=== PATIENT | female | born 2000 | race Caucasian/White ===

== ENCOUNTER 2019-04-16 00:39 | Emergency (ER) | payer BC, SELFPAY ==
[2019-04-16 01:01] VITALS: BP 118/72; PULSE 110; RESP 22; TEMP 37.6; O2SAT 100
[2019-04-16 02:28] VITALS: BP 113/70; PULSE 89; RESP 18; O2SAT 98
--- NOTE | 2019-04-16 03:25 | ED.GENADULT ---
HPI - General Adult General Chief complaint: Unspecified Stated complaint: 25 WEEKS PREG, FEVER, HEADACHES Time Seen by Provider: 04/16/19 02:27 Source: patient Mode of arrival: ambulatory Limitations: no limitations History of Present Illness HPI narrative: Pt presented for evaluation of abdominal pain, nausea and vomiting. Pt with lower abdominal pain which is aching in nature. She denies RLQ pain. She has been nauseated and vomited several times. She reports low grade fever and chills over the past two days. Denies vaginal discharge or loss of fluids. SHe is feeling movements normally per her. She also reports a nosebleed today. She has also reported heriberto crook contractions in the past but none currently. Her OBGYN is . Related Data Allergies Allergy/AdvReac Type Severity Reaction Status Date / Time No Known Allergies Allergy Unverified 08/26/16 06:28 Review of Systems Review of Systems: Narrative: CONSTITUTIONAL: Fever and chills CARDIOVASCULAR: Denies chest pain, palpitations, or edema. RESPIRATORY: Denies cough or dyspnea. GASTROINTESTINAL: Reports abdominal pain, nausea and vomiting GENITOURINARY: Reports frequency in urination SKIN: Denies rash or itching. MUSCULOSKELETAL: Denies back pain, joint pain, or myalgia. NEUROLOGIC: Denies headache, numbness, or weakness. [facility] Family History Family History (Updated 10/03/09 @ 12:58 by DOCTOR UNKNOWN) Other Diabetes mellitus Hypertension Social History Social History Smoking status: Never smoker Second hand tobacco smoke exposure: No Alcohol intake: never Gender identity (if verbalized by the patient): Female Exam Narrative: Exam Narrative: GENERAL: Well-appearing, well-nourished, and in no acute distress. HEAD: Normocephalic, atraumatic. EYES: PERRLA and EOMI. ENT: Nares clear, no rhinorrhea or epistaxis. Mucous membranes moist. NECK: Supple. CHEST: Clear to auscultation. No respiratory distress. HEART: Regular rate and rhythm. No murmur heard. Normal peripheral pulses. ABDOMEN: Fundus palpable above the umbilicus. Soft, nontender, nondistended, normal active bowel sounds. EXTREMITIES: Normal range of motion. No edema. SKIN: Warm, dry, no rash. NEURO: No focal deficits. Alert and oriented x3 Course Vital Signs Vital signs: Vital Signs Temperature 37.6 C 04/16/19 01:01 Pulse Rate 110 H 04/16/19 01:01 Respiratory Rate 22 H 04/16/19 01:01 Blood Pressure 118/72 04/16/19 01:01 Pulse Oximetry 100 04/16/19 01:01 Temperature 37.6 C 04/16/19 01:01 Pulse Rate 87 04/16/19 05:52 Respiratory Rate 18 04/16/19 05:52 Blood Pressure 109/74 04/16/19 05:52 Pulse Oximetry 98 04/16/19 05:52 Medical Decision Making MDM Narrative Medical decision making narrative: Pt with leukocytosis, anemia and evidence of UTI. Leukocytosis can be seen in and is often normal. She is afebrile here. She does not have influenza on swab. Pt given IV fluids and felt much improved. FHTs 160s. No contraction pain or vaginal bleeding per patient. Patient will be treated for UTI. No RLQ or RUQ abd pain on reassessment, cholecystitis or appendicits unlikely. Advised to follow up with OBGYN for reassessment or return if changes/worsening. Vital Signs Vital Signs: Vital Signs Temperature 37.6 C 04/16/19 01:01 Pulse Rate 110 H 04/16/19 01:01 Respiratory Rate 22 H 04/16/19 01:01 Blood Pressure 118/72 04/16/19 01:01 Pulse Oximetry 100 04/16/19 01:01 Temperature 37.6 C 04/16/19 01:01 Pulse Rate 87 04/16/19 05:52 Respiratory Rate 18 04/16/19 05:52 Blood Pressure 109/74 04/16/19 05:52 Pulse Oximetry 98 04/16/19 05:52 Lab Data Result diagrams: 04/16/19 03:23 04/16/19 03:23 Labs: Lab Results 04/16/19 04/16/19 04/16/19 Range/Units 03:23 03:23 03:23 WBC 14.9 H (4.5-10.0) K/mm3 RBC 3.12 L (4.2-5.4) M/mm3 Hgb 9.9 L (12.0-15.0) g/dL H
[2019-04-16] MEDS: SODIUM CHLORIDE 0.9% IV 1,000 ML 999 ML IV CONT (03:26)
[2019-04-16 03:30] LABS: Glucose Point of Care 102 (65-105)
[2019-04-16 03:41] LABS: Basophils Percent Auto 0.2 % (0.2-1.2); Eosinophils Percent Auto 0.1 % (0-4.4); Hematocrit 29.5 % (37.0-47.0); Hemoglobin 9.9 g/dL (12.0-15.0); Immature Granulocyte Percent A 0.7 % (0-0.5); Lymphocytes Absolute Auto 2.45 K/mm3 (0.9-3.2); Lymphocytes Percent Auto 16.4 % (18.3-44.2); Mean Corpuscular HGB Conc 33.6 g/dl (32-36); Mean Corpuscular Hemoglobin 31.7 pg (26-34); Mean Corpuscular Volume 94.6 fl (80-100); Mean Platelet Volume 10.3 fl (7.4-10.4); Monocytes Absolute Auto 1.8 K/mm3 (0.1-0.6); Monocytes Percent Auto 12.1 % (2.6-8.5); Neutrophils Absolute Auto 10.5 K/mm3 (1.3-6.7); Neutrophils Percent Auto 70.5 % (45.5-73.1); Platelet Count Result 224 k/mm3 (150-375); Red Blood Count 3.12 M/mm3 (4.2-5.4); Red Cell Distribution Width 12.5 % (11.5-14.5); White Blood Count 14.9 K/mm3 (4.5-10.0)
[2019-04-16 04:00] LABS: Add Urine Microscopic? YES; Appearance Urine Cloudy (Clear); Bacteria Urine Trace /hpf; Bilirubin Urine Negative (Negative); Blood Urine Negative (Negative); Color Urine Straw (Yellow); Glucose Urine UA Negative (Negative); Ketones Urine Negative (Negative); Leukocyte Esterase Ur 2+ LEU/UL (Negative); Nitrate Urine Negative (Negative); Protein Urine Negative (Negative); Squamous Epithelial Cell Urine Many /hpf (Few); Urobilinogen Urine Negative mg/dL (<2.0); WBC Urine 16-20 /hpf
[2019-04-16 04:03] LABS: Alanine Aminotransferase 14 U/L (4-35); Albumin Level 3.7 g/dL (3.5-5.1); Alkaline Phosphatase 108 U/L (38-126); Aspartate Amino Transferase 18 U/L (14-36); Bilirubin,Total 0.4 mg/dL (0.2-1.3); Blood Urea Nitrogen 4 mg/dL (7-17); Calcium 8.8 mg/dL (8.4-10.2); Carbon Dioxide 22 mmol/L (22-30); Chloride 97 mmol/L (98-107); Estimated CRCL calculation 146 ml/min; Estimated Glomerular Filt Rate > 60; Glucose 97 mg/dL (65-105); Lipase 29 U/L (23-300); Potassium 3.6 mmol/L (3.4-5.0); Sodium 132 mmol/L (137-145)
[2019-04-16 04:05] LABS: Specific Grav Ur 1.003 (1.001-1.035)
[2019-04-16 05:52] VITALS: BP 109/74; PULSE 87; RESP 18; O2SAT 98
[2019-04-16] MEDS: CEPHALEXIN 500 MG CAPSULE PO (05:52)
== END 2019-04-16 05:53 | disposition home or self-care (01) ==
PROVIDERS: Emergency Provider Emergency Medicine; PCP Family Medicine
DX: N30.00 Acute cystitis without hematuria (principal)
CPT/HCPCS: 36415; 80053; 81001; 82948; 83690; 84443; 85025; 87086; 87804; 96360; 99283; A9270; J7030

== ENCOUNTER 2019-07-17 00:37 | Inpatient (IN) | payer BC, MEDICAID, SELFPAY ==
[2019-07-17] VITALS (70 sets, daily range): BP systolic 75–135; BP diastolic 23–101; PULSE 59–104; RESP 16; TEMP 36.6–37.2; O2SAT 98–100; BMI 28.4
[2019-07-17 01:29] LABS: Basophils Percent Auto 0.2 % (0.2-1.2); Eosinophils Absolute Auto 0.1 K/mm3 (0-0.3); Eosinophils Percent Auto 0.6 % (0-4.4); Hematocrit 37.1 % (37.0-47.0); Hemoglobin 12.7 g/dL (12.0-15.0); Immature Granulocyte Absolute 0.07 K/mm3 (0.00-0.031); Immature Granulocyte Percent A 0.6 % (0-0.5); Lymphocytes Absolute Auto 3.84 K/mm3 (0.9-3.2); Lymphocytes Percent Auto 33.6 % (18.3-44.2); Mean Corpuscular HGB Conc 34.2 g/dl (32-36); Mean Corpuscular Hemoglobin 32.2 pg (26-34); Mean Corpuscular Volume 93.9 fl (80-100); Mean Platelet Volume 11.3 fl (7.4-10.4); Monocytes Absolute Auto 0.8 K/mm3 (0.1-0.6); Monocytes Percent Auto 6.8 % (2.6-8.5); Neutrophils Absolute Auto 6.7 K/mm3 (1.3-6.7); Neutrophils Percent Auto 58.2 % (45.5-73.1); Platelet Count Result 259 k/mm3 (150-375); Red Blood Count 3.95 M/mm3 (4.2-5.4); Red Cell Distribution Width 12.9 % (11.5-14.5); White Blood Count 11.4 K/mm3 (4.5-10.0)
[2019-07-17] MEDS: LACTATED RINGERS 1,000 ML 125 ML IV CONT ×3 (03:04→09:25)
[2019-07-17] MEDS: OXYTOCIN 30 UNITS/NS 500 ML 30 UNITS/500 ML BAG IV CONT (03:04)
--- NOTE | 2019-07-17 10:23 | WPDOBADMIT ---
Obstetrics - Admit Note Admission Note: 0745 Called to bedside IUPC placed and amnio infusion. Patient with Oxygen and on left side. record reviewed. No pertinent additions to the history and/or any subsequent changes in the physical findings that are not consistent with the expected course of the were found. Additions to the history and/or subsequent changes in the physical findings follow. None.
--- NOTE | 2019-07-17 10:24 | PM.OBPRVD ---
OB - Delivery Note Procedure Delivery date: 07/17/19 Procedure: events: Labor Augmentation Intrapartal events: None Delivery augmentation: pitocin Delivery monitor: external FHT, external uterine and internal uterine Route of delivery: Laceration description: None Specimen: No Estimated blood loss (mL): 55 Anesthesia type: Epidural Disposition: observation Baby Date of : 07/17/19 Time of : 10:10 Weeks of gestation at delivery: 38 gender: Female Weight (pounds): 8 Weight (ounces): 9 presentation: vertex position: Left Occiput Anterior Placenta delivery description: Spontaneous cord vessel description: 3 Vessels and Clamped/Cut score one minute: 8 score five minutes: 9
--- NOTE | 2019-07-17 10:28 | PM.OBDSVD ---
OB - DS: Summary OB Procedures : None OB Procedures Intrapartum: Spontaneous Vag Delivery OB Procedures: : None Peripartum Data Delivery Method: Natural Vaginal Laceration description: None Time Spent with Patient Time attestation: Total time spent providing and/or coordinating discharge services: DS: Data Data Completed and Pending Labs on day of discharge: Labs from last 24 hours 07/17/19 07/17/19 07/17/19 01:16 01:16 01:16 WBC 11.4 H RBC 3.95 L Hgb 12.7 Hct 37.1 MCV 93.9 MCH 32.2 MCHC 34.2 RDW 12.9 Plt Count 259 MPV 11.3 H Immature Gran % (Auto) 0.6 H Neut % (Auto) 58.2 Lymph % (Auto) 33.6 [place] % (Auto) 6.8 Eos % (Auto) 0.6 Baso % (Auto) 0.2 Lymph # (Auto) 3.84 H [place] # (Auto) 0.8 H Eos # (Auto) 0.1 Baso # (Auto) 0.0 Abs Immat Gran (auto) 0.07 H Absolute Neuts (auto) 6.7 Absolute Nucleated RBC 0.0 Nucleated RBC % 0.0 RPR Pending Blood Type O Positive Antibody Screen Negative Discharge Plan Discharge Attending physician on discharge: Carin Hughes Discharging Clinician: Carin Hughes Patient Disposition: Home, Self-Care Activity: may shower and pelvic rest Diet: regular Discharge Instructions: Education: Mom and Baby Guide Given to: Mother Follow-Up: Call your delivering provider's office for an appointment to be seen in: Call office and make appt. if desiring any type of control Mom and baby should come to the [facility] for the follow-up appointment. Appointment Date/Time: July 20, 2019 at 11:00 am What to expect at your follow-up visit: Blood Pressure Check Physical Assessment Call [phone] if you are unable to keep your appointment time. BREAST CARE: 1. Wear a snug supportive bra. Bottle Feeding: A. May apply ice packs EPISIOTOMY/PERINEAL CARE: 1. Until bleeding stops, use your gopal bottle after urinating 2. Change your pad frequently throughout the day 3. You may take sitz baths several times a day (fill your bathtub with warm water and soak for 20 minutes.) Do NOT bathe in the water 4. No tub baths until seen by your physician - You may shower ACTIVITY: 1. Rest as much as possible. 2. Do not exercise or lift anything heavier than your baby (such as laundry or other children.) 3. Avoid stairs or driving as much as possible. 4. Do not put anything into the vagina. No douching, tampons, or sexual activity until seen by physician. NOTIFY PHYSICIAN IF YOU HAVE ANY QUESTIONS OR IF ANY OF THE FOLLOWING SYMPTOMS OCCUR: 2. If your vaginal bleeding becomes foul smelling. 3. If your vaginal bleeding becomes more heavy than a period or if your bleeding changes from pink to bright red. However, you may pass an occasional walnut-sized clot once or twice for the first week . 4. If you experience a sharp, shooting pain in you calves. 5. If you discover a hard, reddened area on your breast or if you experience flu-like symptoms. DIET: 1. Eat regular, well-balanced meals. 2. Drink plenty of fluids daily. . Stand Alone Forms: General Discharge Information Follow-up/Referrals: Des Ramirez MD [Physician] - 1 Week (Call and make appt. for control measures) Discharge Medications: Discontinued valacyclovir 500 mg Tablet 500 mg PO DAILY RF: 0 PNV cmb#[id number] fumarate-FA [] 28 mg iron- 800 mcg Tablet 1 tablet PO DAILY RF: 0 Date of admission: 07/17/19 00:37 Primary Care Provider: Juan Diego Cabrera Admitting Provider: Des Ramirez Discharge Date/Time: 07/18/19 13:12 Attending physician on admission: Carin Hughes
[2019-07-17] MEDS: IBUPROFEN 600 MG TABLET PO ×2 (12:33→22:16)
--- NOTE | 2019-07-17 13:12 | PC.NURSE ---
1311-Patient transferred to post room #282 via wheelchair. Support person present. Oriented to unit, room, information board, rooming in, admission packet and security measures. Patient verbalizes understanding.
[2019-07-18] MEDS: IBUPROFEN 600 MG TABLET PO ×2 (04:16→12:23)
[2019-07-18 04:30] LABS: Hematocrit 36.5 % (37.0-47.0); Hemoglobin 12.4 g/dL (12.0-15.0)
[2019-07-18 07:19] VITALS: BP 118/72; PULSE 75; RESP 18; TEMP 37.2; O2SAT 100
--- NOTE | 2019-07-18 08:18 | PC.NURSE ---
Patient viewed the discharge video Mother & Baby Care, The First Two Weeks . Patient was given the opportunity and encouraged to ask questions. Patient verbalized understanding of information shared and has been given the mother/baby guide for home reference.
--- NOTE | 2019-07-18 09:00 | PM.OBPNVD ---
OB - PN: Subj Subjective Date/time seen: 07/18/19 09:00 Patient comments: no complaints baby status: doing well and bottle feeding well OB - PN: Obj Data Labs CBC & Chem 7: 07/18/19 04:20 Labs: Laboratory Results - last 24 hr 07/18/19 04:20 Hgb 12.4 Hct 36.5 L OB - PN A/P Assessment and Plan (1) (normal spontaneous vaginal delivery): Code(s): O80 - Encounter for full-term uncomplicated delivery Status: Acute Assessment and Plan: Doing well. Continue care Time Spent With Patient Time: Total time spent is greater than 50% in coordination of care (as documented) at patient's floor/unit and/or counseling patient: Exam : Bimanual exam- vagina & uterus: other (Uterus firm, nt @U)
[2019-07-18 10:53] LABS: Rapid Plasma Reagin Non-Reactive (NonReactive)
--- NOTE | 2019-07-18 12:14 | PC.NURSE ---
Self care and infant care discharge instructions given to pt including follow up visit date and time. Mother veblalized understanding. No questions or concerns voiced. Very pleasant and cooperative.
[2019-07-18] MEDS: TETANUS,DIPHTHERIA,AC PERTUSSIS ADULT (0.5 ML) BOOSTRIX IM (12:23)
--- NOTE | 2019-07-18 13:19 | PC.NURSE ---
During discharge instructions pt. states she takes Valtrex when at home and will continue with that.
[2019-07-20 11:29] VITALS: BP 110/73; PULSE 98; RESP 20; TEMP 36.9; O2SAT 98
== END 2019-07-18 13:12 | disposition home or self-care (01) | DRG 806 ==
LOC: ANHLDR 07:07 → ANHOB2 07-18 12:49 → ANHLDR 07-20 07:02 → ANHOB2 07-20 07:02
PROVIDERS: Admitting Provider Obstetrics & Gynecology; PCP Family Medicine; Visit Provider Obstetrics & Gynecology Gynecology
DX: O98.52 Other viral diseases complicating childbirth (principal); B00.89 Other herpesviral infection; Z37.0 Single live birth; Z3A.38 38 weeks gestation of pregnancy; O36.8330 Maternal care for abnormalities of the fetal heart rate or rhythm, third trimester, not applicable or unspecified
CPT/HCPCS: 36415; 85014; 85018; 85025; 86592; 86850; 86900; 86901; 90715; A9270; J2590; J2795; J7120

== ENCOUNTER 2020-03-26 12:33 | Outpatient (CLI) | payer BC, MEDICAID, SELFPAY ==
--- NOTE | ~2020-03-26 | US_ITS ---
EXAMINATION: US OB <= 14 weeks fetus DATE: 03/26/2020 13:15 INDICATION: Establish dating of . TECHNIQUE: Real-time pelvic ultrasound utilizing both a transvaginal and transabdominal probe was pe rformed. The interpreting radiologist was not present for the study. COMPARISON: None. FINDINGS: The uterus measures 10.6 x 10.6 x 7.1 cm. There is an intrauterine gestational sac. A yolk sac and f etal pole are identified. The crown rump length measures 3.2, which correlates with an estimated gest ational age of 10 weeks and 0 days. heart motion is identified measuring 161 beats per minute ( bpm) by M-mode Doppler. The right ovary measures 3.1 x 2.0 x 1.5 cm. Vascular flow is identified in the right ovary on color Doppler. The left ovary is not visualized. There is no free fluid in the pelvis. IMPRESSION: 1. Single living fetus with heart rate of 161 bpm. 2. Gestational age by ultrasound of 10 weeks 0 day(s) +/- 6 day(s) with ultrasound estimated date of delivery (EVAN) of 10/22/2020. Reviewed, dictated and finalized at location A. X SERVER ENGINEER IMPRESSION: 1. Single living fetus with heart rate of 161 bpm. 2. Gestational age by ultrasound of 10 weeks 0 day(s) +/- 6 day(s) with ultras ound estimated date of delivery (EVAN) of 10/22/2020.
== END 2020-03-26 12:34 | disposition home or self-care (01) ==
PROVIDERS: PCP Family Medicine; Visit Provider Nurse Practitioner
DX: Z36.87 Encounter for antenatal screening for uncertain dates (principal); Z3A.10 10 weeks gestation of pregnancy
CPT/HCPCS: 76801

== ENCOUNTER → 2020-05-24 14:14 | Outpatient (CLI) | payer BC, MEDICAID, SELFPAY ==
--- NOTE | ~2020-05-24 | US_ITS ---
US OB >= 14 weeks Fetus DATE: 05/24/2020 14:47 INDICATION: anatomy screen TECHNIQUE: Real-time imaging and Doppler analysis COMPARISON: 03/26/2020 obstetrical ultrasound FINDINGS: Live dinero intrauterine gestation, fetus in vertex presentation. heart rate 154 bpm. Posterior placenta, lower margin 4 cm above the internal os. Subjectively normal amount of amniotic f luid. No cerebral ventriculomegaly. The cerebellum and nuchal fold appear normal. upper l ip appears normal. The spine appears unremarkable on transverse and longitudinal imaging. diaphragm is intact. 4 chamber heart. Outflow tracts are not well demonstrated at this point. Fluid is demonstrated in the stomach and urinary bladder. The kidneys are unremarkable. T he extremities are unremarkable. Three-vessel umbilical cord with normal insertion at abdominal wall. Biparietal diameter: 4.37 cm; 19 weeks 2 days Head circumference 15.72 cm; 18 weeks 4 days Abdominal circumference 12.82 cm; 18 weeks 3 days Femur length 2.50 cm; 17 weeks 4 days Composite age by [place] formula based on the current measurements would be 18 weeks 3 days +/- 1 we ek 2 days; EVAN 10/22/2020, identical to that determined by LMP. Estimated weight is 223.5 +/- 33.5 g Estimated weight-GP: 26.1% Head circumference/abdominal bat boy/girl was 1.23, within normal range of 1.08, 101.27 Femur length/head circumference 15.90, at lower limits of normal range of 15.93-18.13. IMPRESSION: Normal anatomy screen Estimated gestational age is 18 weeks 3 days +/- 1 week 2 days; EVAN: 10/22/2020 Reviewed, dictated and finalized at Location [facility]. Reviewed, dictated and finalized at location A.
== END ==
PROVIDERS: Visit Provider Obstetrics & Gynecology
DX: Z34.92 Encounter for supervision of normal pregnancy, unspecified, second trimester (principal); Z3A.18 18 weeks gestation of pregnancy
CPT/HCPCS: 76805

== ENCOUNTER 2020-08-30 20:42 | Observation (INO) | payer BC, SELFPAY ==
[2020-08-30 20:57] VITALS: TEMP 36.8
[2020-08-30 21:00] VITALS: BP 125/78; PULSE 91; BMI 26.6
[2020-08-30 21:01] VITALS: BP 122/82; PULSE 98
--- NOTE | 2020-08-30 21:29 | OBADM ---
This patient, Mahsa Ojeda, admitted to the OB room OB Post 117 for observation. Patient/family oriented to hospital policies and general routines including ID bracelet, bed and alarms, visiting hours, pain management, procedures, bathroom and other care routines, personal items, smoking policy, room service/diet, and visiting hours. Patient/Family are encouraged to report perceived risks to care and to ask questions if they do not understand what they are told or what they should do.
[2020-08-30 21:30] LABS: Add Urine Microscopic? YES; Appearance Urine Clear (Clear); Bilirubin Urine Negative (Negative); Blood Urine Negative (Negative); Color Urine Straw (Yellow); Glucose Urine UA Negative (Negative); Ketones Urine Negative (Negative); Leukocyte Esterase Ur 2+ LEU/UL (NEGATIVE); Nitrate Urine Negative (Negative); Protein Urine Negative (Negative); RBC Urine 0-2 /hpf (0-2); Specific Grav Ur 1.005 (1.001-1.035); Squamous Epithelial Cell Urine Many /hpf (Few); Urobilinogen Urine Negative mg/dL (<2.0); WBC Urine 0-3 /hpf (0-3)
[2020-08-30 22:47] LABS: Fetal Fibronectin Negative
--- NOTE | 2020-08-30 22:52 | PC.NURSE ---
Notified Dr. Hughes FFN is negative and cervix is closed. Will discharge pt home.
--- NOTE | 2020-09-03 09:03 | PM.OBTRLD ---
OB - Triage/Final Diagnosis Visit Information Reason for evaluation: decreased movement Comments/Additional reasons for admission: I have assessed the risk for this patient, Mahsa Ojeda, and determined that she would benefit from observation care. Evaluation Laboratory results: Laboratory Tests 08/30/20 08/30/20 21:10 22:09 Urine Color Straw Urine Appearance Clear Urine pH 7.0 Ur Specific [place] 1.005 Urine Protein Negative Urine Glucose (UA) Negative Urine Ketones Negative Ur Blood (Man) Negative Urine Nitrate Negative Urine Bilirubin Negative Urine Urobilinogen Negative Ur Leukocyte Esterase 2+ H Urine RBC 0-2 Urine WBC 0-3 Ur Squamous Epith Cells Many H Fibronectin Negative
== END 2020-08-30 23:05 | disposition home or self-care (01) ==
PROVIDERS: Admitting Provider Obstetrics & Gynecology Gynecology; PCP Family Medicine; Visit Provider Obstetrics & Gynecology Gynecology
DX: O36.8130 Decreased fetal movements, third trimester, not applicable or unspecified (principal); Z3A.32 32 weeks gestation of pregnancy
CPT/HCPCS: 81001; 82731; 87086; G0378; G0379

== ENCOUNTER 2020-09-04 11:45 | Outpatient (CLI) | payer BC, SELFPAY ==
--- NOTE | ~2020-09-04 | US_ITS ---
EXAMINATION: US OB follow up DATE: 09/04/2020 12:07 INDICATION: Small for gestational age. Cardiac outflow tracts not clearly visualized on prior imaging . TECHNIQUE: Real-time ultrasound of the pelvis was performed. The interpreting radiologist was not pre sent for the study. COMPARISON: None. FINDINGS: There is a single living fetus in vertex presentation. The placenta is fundal and not low-lying. Fet al heart rate is 141 beats per minute (bpm). The amniotic fluid index is 19.1 cm, which is normal (5 th%-95%: 8.3-24.5 cm at 33 weeks estimated gestational age). The left and right ventricular outflow t racks are normal. The following biometric data were obtained: BPD: 8.5 cm -> 34 weeks 1 days Head circumference: 31.1 cm -> 34 weeks 5 days Abdominal circumference: 29.0 cm -> 33 weeks 0 days Femur length: 6.2 cm -> 32 weeks 1 days These measurements are concordant. Head circumference to abdominal circumference ratio: 1.07 (normal range 0.95-1.11). Estimated weight: 2109 g (+/-) 316 g or 4 lbs. 10 oz. (+/-) 11 oz. IMPRESSION: 1. Single living fetus in vertex presentation with heart rate of 141 bpm. 2. Normal left and right ventricular outflow tract views. 3. Estimated weight is 38th percentile by Hadlock criteria when 10/22/2020 is used as the estima ramiro date of delivery (EVAN). Please correlate with clinical information or earlier ultrasounds for mos t accurate EVAN. Reviewed, dictated and finalized at location A. IMPRESSION: 1. Single living fetus in vertex presentation with heart rate of 141 bpm. 2. Normal left and right ventricular outflow tract views. 3. Estimated weight is 38th percentile by Hadlock criteria when 10/22/2020 is used as the estimated date of delivery (EVAN). Please correlate with clinica l information or earlier ultrasounds for most accurate EVAN.
== END 2020-09-04 11:46 ==
PROVIDERS: Visit Provider Nurse Practitioner
DX: O36.5930 Maternal care for other known or suspected poor fetal growth, third trimester, not applicable or unspecified (principal)
CPT/HCPCS: 76816

== ENCOUNTER 2020-10-15 04:37 | Inpatient (IN) | payer BC, SELFPAY ==
[2020-10-15] VITALS (64 sets, daily range): BP systolic 75–136; BP diastolic 44–89; PULSE 49–101; RESP 16; TEMP 36–36.8; O2SAT 94–100; BMI 27.7
--- NOTE | 2020-10-15 05:12 | LDADM ---
This patient, Mahsa Ojeda, was admitted to Labor/Delivery/Recovery 104 on 10/15/20 at 04:37. Plans for labor, pain management and were discussed with patient. Patient/family oriented to hospital policies and general routines including ID bracelet, bed and alarms, visiting hours, pain management, procedures, bathroom and other care routines, personal items, smoking policy, room service/diet and guest tray routines, infant security routines, and visiting hours. Patient/Family are encouraged to report perceived risks to care and to ask questions if they do not understand what they are told or what they should do. See OBIX for further documentation.
[2020-10-15 05:22] LABS: Basophils Percent Auto 0.2 % (0.2-1.2); Eosinophils Absolute Auto 0.1 K/mm3 (0-0.3); Eosinophils Percent Auto 1.1 % (0-4.4); Hematocrit 36.8 % (37.0-47.0); Hemoglobin 12.5 g/dL (12.0-15.0); Immature Granulocyte Absolute 0.04 K/mm3 (0.00-0.031); Immature Granulocyte Percent A 0.5 % (0-0.5); Lymphocytes Absolute Auto 3.05 K/mm3 (0.9-3.2); Lymphocytes Percent Auto 37.1 % (18.3-44.2); Mean Corpuscular Hemoglobin 32.3 pg (26-34); Mean Corpuscular Volume 95.1 fl (80-100); Mean Platelet Volume 11.1 fl (7.4-10.4); Monocytes Absolute Auto 0.4 K/mm3 (0.1-0.6); Monocytes Percent Auto 5.4 % (2.6-8.5); Neutrophils Absolute Auto 4.6 K/mm3 (1.3-6.7); Neutrophils Percent Auto 55.7 % (45.5-73.1); Platelet Count Result 199 k/mm3 (150-375); Red Blood Count 3.87 M/mm3 (4.2-5.4); Red Cell Distribution Width 13.6 % (11.5-14.5); White Blood Count 8.2 K/mm3 (4.5-10.0)
[2020-10-15] MEDS: LACTATED RINGERS 1,000 ML 125 ML IV CONT ×3 (05:39→14:31)
[2020-10-15] MEDS: OXYTOCIN 30 UNITS/NS 500 ML 30 UNITS/500 ML BAG IV CONT (05:39)
[2020-10-15 06:24] LABS: Rapid Plasma Reagin Non-Reactive (NonReactive)
--- NOTE | 2020-10-15 08:54 | WPDOBADMIT ---
Obstetrics - Admit Note Admission Note: record reviewed. No pertinent additions to the history and/or any subsequent changes in the physical findings that are not consistent with the expected course of the were found. Additions to the history and/or subsequent changes in the physical findings follow. Here for MIL at 39 wks. 2//3 very posterior. Unable to AROM, continue pitocin per protocol.
--- NOTE | 2020-10-15 09:05 | WPDANESEPP ---
Anes - Eval Pre Procedure Procedure: Labor Epidural Date/Time: 10/15/20 09:05 Surgeon: Ashley Preop Diagnosis: Labor Pain Pre Op Diagnosis: Induction of Labor Patient Data Age: 20 Gender: F Height: 1.68 m Weight: 78 kg Last Vital Signs Temp 36.7 C 10/15/20 07:30 Pulse 71 10/15/20 09:00 BP 136/85 10/15/20 09:00 Allergies Allergy/AdvReac Type Severity Reaction Status Date / Time No Known Allergies Allergy Unverified 08/26/16 06:28 Home Medications Medication Instructions Recorded Confirmed Type One Daily 1 tab-cap PO DAILY 08/30/20 10/15/20 History ergocalciferol (vitamin D2) 50,000 unit PO WEEKLY 08/30/20 10/15/20 History valacyclovir [Valtrex] 500 mg PO DAILY 08/30/20 10/15/20 History Laboratory Tests 10/15/20 10/15/20 10/15/20 05:08 05:08 05:08 WBC 8.2 K/mm3 K/mm3 (4.5-10.0) RBC 3.87 M/mm3 L M/mm3 (4.2-5.4) Hgb 12.5 g/dL g/dL (12.0-15.0) Hct 36.8 % L % (37.0-47.0) MCV 95.1 fl fl (80-100) MCH 32.3 pg pg (26-34) MCHC 34.0 g/dl g/dl (32-36) RDW 13.6 % % (11.5-14.5) Plt Count 199 k/mm3 k/mm3 (150-375) MPV 11.1 fl H fl (7.4-10.4) Immature Gran % (Auto) 0.5 % % (0-0.5) Neut % (Auto) 55.7 % % (45.5-73.1) Lymph % (Auto) 37.1 % % (18.3-44.2) [place] % (Auto) 5.4 % % (2.6-8.5) Eos % (Auto) 1.1 % % (0-4.4) Baso % (Auto) 0.2 % % (0.2-1.2) Lymph # (Auto) 3.05 K/mm3 K/mm3 (0.9-3.2) [place] # (Auto) 0.4 K/mm3 K/mm3 (0.1-0.6) Eos # (Auto) 0.1 K/mm3 K/mm3 (0-0.3) Baso # (Auto) 0.0 K/mm3 K/mm3 (0.0-0.1) Abs Immat Gran (auto) 0.04 K/mm3 H K/mm3 (0.00-0.031) Absolute Neuts (auto) 4.6 K/mm3 K/mm3 (1.3-6.7) Absolute Nucleated RBC 0.0 K/mm3 K/mm3 (0.0-0.012) Nucleated RBC % 0.0 % % (0.0-0.2) RPR Non-reactive (NonReactive) Blood Type O Positive Antibody Screen Negative : gestational age (, EVAN 10/22/20) Patient hx anesthesia problems: none Family hx anesthesia problems: none PMFSH Family History Family History Other Diabetes mellitus Hypertension Social History Social History Smoking packs per day: 1 Smoking cigarettes per day: 20.0 Years smoked: 2 Smoking pack-years: 2.00 Smoking status: Never smoker Tobacco type: cigarettes Second hand tobacco smoke exposure: No Alcohol intake: never Substance use: never Gender identity (if verbalized by the patient): Female Spiritual care concerns: No Exam Day of Procedure 10/15/20 09:05 Patient weight: normal Heart: regular rate and rhythm Lungs: normal air movement Airway: Mallampati scale class II Neurological: alert and oriented
--- NOTE | 2020-10-15 16:43 | PM.OBPRVD ---
OB - Delivery Note Procedure Delivery date: 10/15/20 Procedure: Intrapartal events: None Induction method: AROM and per pitocin protocol Delivery monitor: external FHT and external uterine Route of delivery: Laceration Description: None Specimen: No Quantitative Blood Loss (ml): 100 Anesthesia type: Epidural Disposition: floor [place] Baby Date of : 10/15/20 Time of : 16:31 Weeks of gestation at delivery: 39 Weight (pounds): 8 Weight (ounces): 3 presentation: vertex position: Left Occiput Anterior Placenta delivery description: Spontaneous cord vessel description: 3 Vessels, Nuchal Cord and Clamped/Cut score one minute: 6 score five minutes: 8
[2020-10-15] MEDS: OXYTOCIN 30 UNITS/NS 500 ML 30 UNITS/500 ML BAG 125 UNITS IV CONT (16:59)
--- NOTE | 2020-10-15 19:21 | OBPPTRN ---
Patient transferred to post room #285 via wheelchair. Support person present. Oriented to unit, room, information board, rooming in, admission packet and security measures. Patient verbalizes understanding.
[2020-10-15] MEDS: valACYclovir HCL 500 MG TABLET PO (21:50)
[2020-10-16] MEDS: IBUPROFEN 600 MG TABLET PO ×3 (00:54→17:23)
[2020-10-16 04:30] VITALS: BP 105/62; PULSE 68; RESP 16; TEMP 36.6; O2SAT 96
[2020-10-16 05:47] LABS: Hematocrit 37.7 % (37.0-47.0); Hemoglobin 12.6 g/dL (12.0-15.0)
--- NOTE | 2020-10-16 07:42 | PM.OBPNVD ---
OB - PN: Subj Subjective Date/time seen: 10/16/20 07:42 Patient comments: no complaints and pain well controlled baby status: doing well OB - PN: Obj Data Labs CBC & Chem 7: 10/16/20 04:38 Labs: Laboratory Results - last 24 hr 10/16/20 04:38 Hgb 12.6 Hct 37.7 OB - PN A/P Plan day: 1 Plan: routine care, discharge home, follow up 6 weeks and other (unsure control plans) Time Spent With Patient Time: Total time spent is greater than 50% in coordination of care (as documented) at patient's floor/unit and/or counseling patient: Exam : Bimanual exam- vagina & uterus: other (Uterus firm, nt @U)
[2020-10-16 08:00] VITALS: BP 126/70; PULSE 71; RESP 18; TEMP 36.6; O2SAT 96
[2020-10-16] MEDS: MULTIVIT/MIN/PREN/FOL AC/IRON TABLET 1 TAB PO (08:29)
[2020-10-16] MEDS: valACYclovir HCL 500 MG TABLET PO (08:29)
[2020-10-16] MEDS: DOCUSATE SODIUM 100 MG CAPSULE PO ×2 (08:29→17:22)
[2020-10-16] MEDS: LANOLIN (LANSINOH) 7.5 GM CREAM 1 APPLIC TOPICAL (08:30)
--- NOTE | 2020-10-16 08:40 | PC.NURSE ---
Mother called out for assist with feeding, reporting is sleepy and difficult to wake and latch. Infant is able to freely thrust tongue past gum ridge and flange both lips. Skin is intact on both nipples, redness noted. Nipple care reviewed of lanolin after feedings, warm compresses as needed. Reviewed infant feeding cues, frequencies, duration of feedings, feeding elimination flow sheet, and signs of adequate intake. Demonstrated stimulation techniques to wake infant for feeding. Several minutes before infant awake and feeding cues noted. Assisted with to breast. Reviewed positioning/alignment in cross cradle, holding breast in ?U? hold and guided asymmetrical latch on. Discussed rational for each. Infant able to latch correctly. nursed eagerly, with steady draws and occasional swallowing followed with long pausing. Suggested mother stimulate while feeding to increase stimulation, increase intake and to assist with maintaining deep latch. Reviewed signs of a correct latch, effective nursing and suck swallow ratio. would slip to shallow latch, mother reports tenderness. Demonstrated how to adjust latch more deeply while feeding. Mother reports she can feel change in latch and has no tenderness. Instructed mother to call out for RN assistance if she is unable to latch infant for feeding or she has discomfort with nursing.
--- NOTE | 2020-10-16 09:05 | PC.NURSE ---
Mother called out for assist with waking to switch to other breast. awake within a few attempts. Mother is able to independently latch infant with appropriate positioning/alignment. She denies any nipple discomfort. Infant nurses sleepily needing constant stimulation to keep awake and nursing effectively.
--- NOTE | 2020-10-16 11:00 | PC.NURSE ---
Patient was given the opportunity to view the discharge video Mother & Baby Care, The First Two Weeks and to ask questions. Patient declined viewing the video and has been given the mother/baby guide for home reference.
[2020-10-16 11:47] VITALS: BP 109/64; PULSE 64; RESP 16; TEMP 36.7; O2SAT 98
--- NOTE | 2020-10-16 15:05 | WPDANLDPN2 ---
Anes-Prog Note L&D Date/Time: 10/16/20 15:05 Comfortable throughout: labor and delivery Neuraxial method: epidural Epidural/Spinal procedure site: clean & non-tender Neuro status: Neuro function grossly intact. Cardiovascular status: normal Respiratory status: normal Airway patency: baseline Mental status: baseline Post-Op hydration status: normal Vital Signs: Last Vital Signs Temp 36.7 C 10/16/20 11:47 Pulse 64 10/16/20 11:47 Resp 16 10/16/20 11:47 BP 109/64 10/16/20 11:47 Pulse Ox 98 10/16/20 11:47 Pain score (VAS): 2 I/O: Intake & Output 10/15/20 10/16/20 10/16/20 23:59 07:59 15:59 Intake Total 1500 Output Total 200 Balance 1300 Post-procedural complaints: none Patient feedback: Patient satisfied with anesthetic care.
--- NOTE | 2020-10-16 15:15 | PC.NURSE ---
Upon entering mother has to breast, with a slightly shallow latch in cradle. Suggested mother switch to cross cradle holding breast. Assisted with to breast. Reviewed positioning/alignment in cross cradle, holding breast in ?U? hold and guided asymmetrical latch on. Discussed rational for each. Infant able to latch correctly. nursed eagerly, with steady draws and frequent swallowing noted. Suggested mother stimulate while feeding to increase stimulation, increase intake and to assist with maintaining deep latch. Reviewed signs of a correct latch, effective nursing and suck swallow ratio. Infant was able to maintain latch without discomfort to mother. Mother reports she can feel change in latch and has no tenderness. Nipple care reviewed of lanolin after feedings, warm compresses as needed. Instructed mother to call out for RN assistance if she is unable to latch for feeding or she has discomfort with nursing.
--- NOTE | 2020-10-16 15:18 | PC.NURSE ---
Self care and infant care discharge instructions given including follow up visit date and time. Mother verbalized understanding. No questions or concerns voiced. Very pleasant and cooperative. FOB at side.
[2020-10-16] MEDS: BENZOCAINE 20% AER SPR (*SP) 56 GM CAN 1 SPRAY TOPICAL (17:22)
[2020-10-16] MEDS: WITCH HAZEL 40 PADS 1 PAD TOPICAL (17:22)
[2020-10-18 09:10] VITALS: BP 104/68; PULSE 86; RESP 20; TEMP 37.4; O2SAT 100
--- NOTE | 2020-12-17 12:19 | P.DS_ITS ---
DS: Admitting Diagnosis Discharge Date 10/16/20 Admitting Diagnosis INduction of labor OB - DS: Summary OB Procedures : None OB Procedures Intrapartum: Spontaneous Vag Delivery OB Procedures: : None Time Spent with Patient Time attestation: Total time spent providing and/or coordinating discharge s ervices: Discharge Plan Discharge Attending physician on discharge: Des Ramirez Discharging Clinician: Carin Hughes Anticipated Discharge Date/Time: 10/16/20 16:43 Patient Disposition: Home, Self-Care Activity: may shower and pelvic rest Diet: regular Discharge Instructions: Education: Mom and Baby Guide Given to: Mother Follow-Up: Call your delivering provider's office for an appointment to be seen in: 4 Weeks [facility] Appointment Date/Time: October at 9:00 am What to expect at your follow-up visit: Blood Pressure Check Physical Assessment Call [phone] if you are unable to keep your appointment time. BREAST CARE: * Wear a snug supportive bra. * For engorgement discomfort: Breast Feeding: * Apply warm moist washcloths * Express milk as needed to relieve engorgement * Wear loose clothing Bottle Feeding: * May apply ice packs * For sore nipples: * Identify correct latch-on * Apply warm moist washcloths before and after nursing * Air dry nipples after nursing * May apply Lansinoh cream to nipples EPISIOTOMY/PERINEAL CARE * Until bleeding stops, use your gopal bottle after urinating * Change your pad frequently throughout the day ACTIVITY: * Rest as much as possible. * Do not exercise or lift anything heavier than your baby (such as laundry or other children.) * Avoid stairs or driving as much as possible. * Do not put anything into the vagina. No douching, tampons, or sexual activity until seen by physician. NOTIFY PHYSICIAN IF YOU HAVE ANY QUESTIONS OR IF ANY OF THE FOLLOWING SYMPTOMS OCCUR: * If your vaginal bleeding becomes foul smelling. * If your vaginal bleeding becomes more heavy than a period or if your bleeding changes from pink to bright red. However, you may pass an occasional walnut- sized clot once or twice for the first week . * If you experience a sharp, shooting pain in you calves. * If you discover a hard, reddened area on your breast or if you experience flu- like symptoms. DIET: * Eat regular, well-balanced meals. * Drink plenty of fluids daily. If , drink to thirst. Patient Instructions: Antibiotic Form Stand Alone Forms: General Discharge Information Follow-up/Referrals: Des Ramirez MD [Physician] - 6 Weeks Discharge Medications: Continued ergocalciferol (vitamin D2) 1,250 mcg (50,000 unit) capsule 50,000 unit PO WEEKLY RF: 0 One Daily 1 tab-cap PO DAILY RF: 0 Discontinued valacyclovir [Valtrex] 500 mg tablet 500 mg PO DAILY RF: 0 Date of admission: 10/15/20 04:37 Primary Care Provider: Juan Diego Cabrera Admitting Provider: Des Ramirez Attending physician on admission: Carin Hughes Condition: Stable
== END 2020-10-16 18:47 | disposition home or self-care (01) | DRG 806 ==
LOC: ANHLDR 04:45 → ANHOB2 10-16 07:44 → ANHLDR 10-17 16:07 → ANHOB2 10-17 16:07
PROVIDERS: Admitting Provider Obstetrics & Gynecology; PCP Family Medicine; Visit Provider Obstetrics & Gynecology Gynecology
DX: O69.81X0 Labor and delivery complicated by cord around neck, without compression, not applicable or unspecified (principal); O98.52 Other viral diseases complicating childbirth; Z37.0 Single live birth; B00.9 Herpesviral infection, unspecified; Z3A.39 39 weeks gestation of pregnancy
CPT/HCPCS: 36415; 85014; 85018; 85025; 86592; 86850; 86900; 86901; A9270; J2590; J2795; J7120